=== PATIENT | female | born 1950 | race Caucasian/White ===

== ENCOUNTER 2018-06-15 05:32 | Inpatient (IN) ==
[2018-06-01 14:01] LABS: Basophils # 0.1 10*3/uL (0.0-0.2); Basophils % 0.7 % (0.0-0.8); Eosinophils # 1.1 10*3/uL (0.0-0.87); Eosinophils % 14.3 % (0.00-10.9); Hematocrit 48.3 VOL% (35.7-47.0); Hemoglobin 16.4 GM/DL (12.0-16.0); Immature Granulocytes % 0.5 %; Immature Granulocytes Absolute 0.04 #; Lymphocytes # 1.6 10*3/uL (1.4-4.0); Lymphocytes % 21.8 % (21.3-54.2); Mean Corpuscular Hemoglobin 34 PG (27-34); Mean Corpuscular Volume 99.4 FL (87-102); Mean Platelet Volume 12.2 FL (9.6-12.0); Monocytes # 0.7 10*3/uL (0.11-0.8); Monocytes % 9.1 % (1.7-12.7); Neutrophils # 3.9 10*3/uL (1.4-7.4); Neutrophils % 53.6 % (38.7-73.9); Platelet Count 163 T/CUMM (130-400); Red Blood Count 4.86 MC/CUMM (3.8-5.5); Red Cell Distribution Width 13.2 % (9.3-17.3); White Blood Count 7.3 T/CUMM (4-12)
[2018-06-01 14:03] LABS: Apearance,Urine CLEAR (Clear); Bacteria,Urine Occasional /HPF (Few); Bilirubin,Urine Negative (Negative); Blood, Urine Negative (Negative); Glucose,Urine (UA) Negative (Negative); Ketones,Urine Negative (Negative); Nitrite,Urine Negative (Negative); Protein,Urine Negative; RBC,Urine 1 /HPF (0-4); Squamous Epithelial Cell,Urine Occasional /HPF (0-10); Urine Color Yellow (Yellow); Urine Urobilinogen < 2.0 EU/DL (0.2-1.0); WBC,Urine 3 /HPF (0-6)
[2018-06-01 14:15] LABS: Partial Thromboplastin Time 38.3 SECS (0-40)
[2018-06-01 14:20] LABS: INR 4.7
[2018-06-01 14:22] LABS: PT Patient Result 46.5 SECS
[2018-06-01 14:27] LABS: Eosinophils 16 % (0-10); Lymphocytes 19 % (20-55); Segmented Neutrophils 56 % (50-85); Total Cells Counted 100
[2018-06-01 14:28] LABS: Albumin 3.4 G/DL (3.4-5.0); Bilirubin,Total 0.6 MG/DL (0.2-1.0); Osmolality,Calculated 284.4 MOS/KG (273-304); Potassium 4.3 MMOL/L (3.5-5.1); Total Protein 6.4 G/DL (6.4-8.3)
[2018-06-01 14:30] LABS: Spherocytes 1+
[2018-06-01 14:31] LABS: Platelet Estimate Normal
[2018-06-15] MEDS ORDERED: VANCOMYCIN 1,000 MG VIAL ONE (06:15)
[2018-06-15] MEDS ORDERED: ROPIVACAINE 0.5% 30 ML VIAL ONE (06:22)
[2018-06-15] MEDS ORDERED: BUPIVACAINE SPINAL 0.75% 2 ML AMP SPINAL ONE (06:22)
[2018-06-15] MEDS ORDERED: TRANEXAMIC ACID 1,000 MG/10 ML VIAL ONE (06:23)
[2018-06-15] MEDS ORDERED: ONDANSETRON 4 MG/2 ML VIAL ONE ×2 (06:23→09:29)
[2018-06-15] MEDS ORDERED: MIDAZOLAM 2 MG/2 ML VIAL ONE (06:23)
[2018-06-15] MEDS ORDERED: fentaNYL 100 MCG/2 ML VIAL ONE ×2 (06:23→09:03)
[2018-06-15] MEDS ORDERED: SODIUM CHLORIDE 0.9% 100 ML IV ONE (06:23)
[2018-06-15] MEDS ORDERED: PROPOFOL 500 MG/50 ML BOTTLE IV ONE (06:23)
[2018-06-15] MEDS ORDERED: VANCOMYCIN INJ 1,000 MG in SODIUM CHLORIDE 0.9% 250 ML IV ONE (06:30)
[2018-06-15] MEDS ORDERED: CLINDAMYCIN INJ 900 MG in PREMIX 1 EACH IV ONE (06:30)
[2018-06-15] MEDS ORDERED: BACITRACIN OINT 0.9 GM PACK TOP ONE (06:37)
[2018-06-15 06:40] LABS: INR 1.1; PT Patient Result 11.4 SECS
[2018-06-15] MEDS ORDERED: LACTATED RINGERS 1,000 ML IV SCH (07:00)
[2018-06-15] MEDS ORDERED: CYCLOBENZAPRINE 10 MG TABLET PO PRN (08:38)
[2018-06-15] MEDS ORDERED: ALBUTEROL 2.5 MG/3 ML NEB RESP TX PRN (08:38)
[2018-06-15] MEDS ORDERED: LIDOCAINE 5% PATCH TRANSDERM PRN (08:38)
[2018-06-15] MEDS ORDERED: ONDANSETRON 4 MG/2 ML VIAL IV PRN (08:40)
[2018-06-15] MEDS ORDERED: MORPHINE 4 MG/1 ML VIAL IV PRN ×2 (08:40)
[2018-06-15] MEDS ORDERED: diphenhydrAMINE CAP 25 MG CAPSULE PO PRN (08:40)
[2018-06-15] MEDS ORDERED: MAGNESIUM HYDROXIDE SUSP 30 ML UDCUP PO PRN (08:40)
[2018-06-15] MEDS ORDERED: oxyCODONE IR 5 MG TABLET PO PRN (08:40)
[2018-06-15] MEDS ORDERED: PHENYLEPHRINE 1 MG/10 ML SYRINGE IV ONE (09:03)
[2018-06-15] MEDS: LACTATED RINGERS 1,000 ML IV SCH ×3 (10:30→23:26)
[2018-06-15] MEDS: QUINAPRIL 20 MG TABLET PO SCH (11:35)
[2018-06-15] MEDS: DOCUSATE SODIUM 100 MG CAPSULE PO SCH ×2 (11:35→21:01)
[2018-06-15] MEDS: KETOROLAC 30 MG/1 ML VIAL IV SCH ×3 (11:35→21:01)
[2018-06-15] MEDS: MONTELUKAST 10 MG TABLET PO SCH (11:35)
[2018-06-15] MEDS: MULTIVITAMIN (BEROCCA) TABLET PO SCH (11:35)
[2018-06-15] MEDS: ACETAMINOPHEN 500 MG TABLET PO SCH ×2 (13:35→18:03)
[2018-06-15] MEDS: CLINDAMYCIN INJ 900 MG in PREMIX 1 EACH IV SCH ×2 (13:35→21:00)
[2018-06-15] MEDS: WARFARIN 2.5 MG TABLET PO SCH (17:33)
[2018-06-16] MEDS: ACETAMINOPHEN 500 MG TABLET PO SCH ×2 (00:51→06:17)
[2018-06-16] MEDS: KETOROLAC 30 MG/1 ML VIAL IV SCH (03:41)
[2018-06-16] MEDS: LACTATED RINGERS 1,000 ML IV SCH (03:42)
[2018-06-16 06:22] LABS: INR 1.1; PT Patient Result 11.2 SECS
[2018-06-16 06:24] LABS: Basophils % 0.2 % (0.0-0.8); Eosinophils # 0.4 10*3/uL (0.0-0.87); Eosinophils % 4.7 % (0.00-10.9); Hematocrit 36.9 VOL% (35.7-47.0); Hemoglobin 12.6 GM/DL (12.0-16.0); Immature Granulocytes % 0.3 %; Immature Granulocytes Absolute 0.03 #; Lymphocytes # 1.5 10*3/uL (1.4-4.0); Lymphocytes % 16.9 % (21.3-54.2); Mean Corpuscular HGB Conc 34.1 GM/DL (32-36); Mean Corpuscular Hemoglobin 34 PG (27-34); Mean Corpuscular Volume 100.8 FL (87-102); Mean Platelet Volume 12.6 FL (9.6-12.0); Monocytes # 0.8 10*3/uL (0.11-0.8); Monocytes % 8.4 % (1.7-12.7); Neutrophils # 6.3 10*3/uL (1.4-7.4); Neutrophils % 69.5 % (38.7-73.9); Platelet Count 126 T/CUMM (130-400); Red Blood Count 3.66 MC/CUMM (3.8-5.5); Red Cell Distribution Width 13.1 % (9.3-17.3)
[2018-06-16 06:56] LABS: Osmolality,Calculated 289.6 MOS/KG (273-304)
[2018-06-16] MEDS: QUINAPRIL 20 MG TABLET PO SCH (08:36)
[2018-06-16] MEDS: DOCUSATE SODIUM 100 MG CAPSULE PO SCH ×2 (08:36→20:35)
[2018-06-16] MEDS: amLODIPine 10 MG TABLET PO SCH (08:36)
[2018-06-16] MEDS: PROPRANOLOL 20 MG TABLET PO SCH ×2 (08:37→20:35)
[2018-06-16] MEDS: MONTELUKAST 10 MG TABLET PO SCH (08:37)
[2018-06-16] MEDS: MULTIVITAMIN (BEROCCA) TABLET PO SCH (08:37)
[2018-06-16] MEDS: CELECOXIB 200 MG CAPSULE PO SCH (14:49)
[2018-06-16] MEDS: oxyCODONE IR 5 MG TABLET PO PRN ×2 (14:50→20:35)
[2018-06-16] MEDS ORDERED: WARFARIN 5 MG TABLET PO SCH (18:00)
[2018-06-16] MEDS: PRAVASTATIN 20 MG TABLET PO SCH (21:12)
[2018-06-17] MEDS: oxyCODONE IR 5 MG TABLET PO PRN ×3 (04:30→22:54)
[2018-06-17 05:49] LABS: INR 1.1
[2018-06-17 05:53] LABS: Basophils % 0.2 % (0.0-0.8); Eosinophils # 0.6 10*3/uL (0.0-0.87); Eosinophils % 7.2 % (0.00-10.9); Hematocrit 40.9 VOL% (35.7-47.0); Hemoglobin 13.8 GM/DL (12.0-16.0); Immature Granulocytes % 0.5 %; Immature Granulocytes Absolute 0.04 #; Lymphocytes # 1.8 10*3/uL (1.4-4.0); Lymphocytes % 20.2 % (21.3-54.2); Mean Corpuscular HGB Conc 33.7 GM/DL (32-36); Mean Corpuscular Hemoglobin 34 PG (27-34); Mean Corpuscular Volume 101.5 FL (87-102); Mean Platelet Volume 13.1 FL (9.6-12.0); Monocytes # 0.6 10*3/uL (0.11-0.8); Monocytes % 6.9 % (1.7-12.7); Neutrophils # 5.7 10*3/uL (1.4-7.4); Platelet Count 128 T/CUMM (130-400); Red Blood Count 4.03 MC/CUMM (3.8-5.5); Red Cell Distribution Width 13.2 % (9.3-17.3); White Blood Count 8.8 T/CUMM (4-12)
[2018-06-17] MEDS: amLODIPine 10 MG TABLET PO SCH (08:21)
[2018-06-17] MEDS: QUINAPRIL 20 MG TABLET PO SCH (08:22)
[2018-06-17] MEDS: MULTIVITAMIN (BEROCCA) TABLET PO SCH (08:22)
[2018-06-17] MEDS: CELECOXIB 200 MG CAPSULE PO SCH (08:22)
[2018-06-17] MEDS: MONTELUKAST 10 MG TABLET PO SCH (08:22)
[2018-06-17] MEDS: DOCUSATE SODIUM 100 MG CAPSULE PO SCH ×2 (08:22→20:39)
[2018-06-17] MEDS: PROPRANOLOL 20 MG TABLET PO SCH ×2 (08:23→20:39)
[2018-06-17] MEDS: WARFARIN 2.5 MG TABLET PO SCH (17:12)
[2018-06-17] MEDS: PRAVASTATIN 20 MG TABLET PO SCH (20:39)
[2018-06-18 06:11] LABS: Basophils % 0.3 % (0.0-0.8); Eosinophils # 0.7 10*3/uL (0.0-0.87); Eosinophils % 8.6 % (0.00-10.9); Hematocrit 37.1 VOL% (35.7-47.0); Hemoglobin 12.8 GM/DL (12.0-16.0); Immature Granulocytes % 0.4 %; Immature Granulocytes Absolute 0.03 #; Lymphocytes # 1.4 10*3/uL (1.4-4.0); Lymphocytes % 17.9 % (21.3-54.2); Mean Corpuscular HGB Conc 34.5 GM/DL (32-36); Mean Corpuscular Hemoglobin 34 PG (27-34); Mean Corpuscular Volume 97.4 FL (87-102); Mean Platelet Volume 12.6 FL (9.6-12.0); Monocytes # 0.6 10*3/uL (0.11-0.8); Monocytes % 7.4 % (1.7-12.7); Neutrophils # 5.1 10*3/uL (1.4-7.4); Neutrophils % 65.4 % (38.7-73.9); Platelet Count 138 T/CUMM (130-400); Red Blood Count 3.81 MC/CUMM (3.8-5.5); Red Cell Distribution Width 13.2 % (9.3-17.3); White Blood Count 7.8 T/CUMM (4-12)
[2018-06-18 06:13] LABS: INR 1.4; PT Patient Result 14.8 SECS
[2018-06-18] MEDS: MONTELUKAST 10 MG TABLET PO SCH (11:42)
[2018-06-18] MEDS: DOCUSATE SODIUM 100 MG CAPSULE PO SCH (11:43)
[2018-06-18] MEDS: PROPRANOLOL 20 MG TABLET PO SCH (11:43)
[2018-06-18] MEDS: CELECOXIB 200 MG CAPSULE PO SCH (11:43)
[2018-06-18] MEDS: amLODIPine 10 MG TABLET PO SCH (11:43)
[2018-06-18] MEDS: MULTIVITAMIN (BEROCCA) TABLET PO SCH (11:43)
[2018-06-18] MEDS: QUINAPRIL 20 MG TABLET PO SCH (11:44)
[2018-06-18 11:48] VITALS: BP 122/69
== END 2018-06-18 14:18 | disposition home health service (06) | DRG 470 ==
LOC: N.OR 05:32 → N.SDSINP 05:32 → N.3E 08:40
PROVIDERS: ADMIT Orthopaedic Surgery; ATTEND Orthopaedic Surgery